=== PATIENT | female | born 1970 | race Caucasian/White ===

== ENCOUNTER 2017-07-30 10:18 | Emergency (ER) | payer OTHER ==
[~2017-07-30] VITALS: Ht 154.9 cm; Wt 59.0 kg
[~2017-07-30 10:18] MED LIST: CYMBALTA 20 MG20 MG PO; ESCITALOPRAM OX10 MG PO; FOLIC ACID 1 MG PO; FOLIC ACID1 M1 PO; IBUPROFEN800 M1 PO; LISINOPRIL10 M1 PO; LYRICA75 M1 PO; MELOXICAM7.5 M1 PO; MELOXICAM7.5 MG PO; METOPROLOL SUC100 M2 PO; MIRALAX17 G1 PO; MORPHINE S10 MG/1 M1 IV; PERCOCET 5-3251 EACH PO; POTASSIUM CHLO10 MEQ PO; SENNA S TABLET1 EACH PO; TOPROL XL25 MG PO; TRAMADOL HCL50 M1 PO; TRAMADOL50 MG PO; TYLENOL325 M1 PO; VITAMIN B-121000 MC3 PO
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
--- NOTE | 2017-07-30 12:34 | RADIOLOGY REPORT ---
EXAMINATION: XR FOOT, RIGHT CLINICAL INFORMATION: Pain status-post fall. COMPARISON: None. TECHNIQUE: AP, lateral, and oblique views of the right foot. FINDINGS: Bony alignment and mineralization are normal. There is a small avulsion fracture seen at the lateral aspect of the base of the distal phalanx of the right great toe. The fracture line shows intra-articular extension. No dislocation is seen. There is no right ankle joint effusion. Boehler's angle is normal. There is no calcaneal spur. No foreign body is seen. IMPRESSION: A minimally displaced fracture is seen of the lateral base of the distal phalanx of the right great toe. The fracture line shows intra-articular extension.
[2017-07-30 12:43] LABS: ABSOLUTE BASOPHIL COUNT 0.3 /CUMM (0.0-0.2); ABSOLUTE EOSINOPHIL COUNT 0.1 /CUMM (0.0-0.7); ABSOLUTE GRANULOCYTE CT 6.9 /CUMM (1.4-6.5); ABSOLUTE LYMPH COUNT 3.2 /CUMM (1.2-3.4); ABSOLUTE MONOCYTE COUNT 0.8 /CUMM (0.10-0.60); BASOPHIL % 2.2 % (0.0-2.0); EOSINOPHIL % 1.2 % (0-5); GRANULOCYTE % 60.8 % (42.2-75.2); HEMATOCRIT 36.7 % (37-47); MEAN CORPUSCULAR HGB 36.5 PG (27.0-31.0); MEAN CORPUSCULAR HGB CONC 34.7 G/DL (33.0-37.0); MEAN CORPUSCULAR VOLUME 105.2 FL (81.0-99.0); MEAN PLATELET VOLUME 6.3 FL (7.4-10.4); PLATELET COUNT 176 /CUMM (130-400); RED BLOOD CELL CT 3.49 /CUMM (4.20-5.40); WHITE BLOOD CELL COUNT 11.3 /CUMM (4.8-10.8)
[2017-07-30 13:03] VITALS: BP 163/74
--- NOTE | 2017-07-30 14:37 | CT SCAN REPORT ---
EXAMINATION: CT HEAD W/O IV CONTRAST CT CERVICAL SPINE W/O IV CONTRAST CLINICAL INFORMATION: Trauma. History of fall 2 days ago. COMPARISON: None TECHNIQUE: Head - Contiguous axial imaging of the head was performed from the skull base to the vertex without the administration of intravenous contrast, and axial images are reconstructed at 0.625 mm , 2.5 mm and 5 mm slice thickness. Cervical spine - A volumetric, helical CT acquisition of the cervical spine was obtained without contrast; in addition to the standard set of axial images, multiplanar reformatted images were provided in the coronal and sagittal imaging planes. DLP: 907 mGy-cm (total) FINDINGS: HEAD: A hyperdense subdural hematoma overlying the left cerebral hemisphere measures up to approximately 0.5 cm wide. Small amount of subdural hemorrhage also extends along the falx and tentorium cerebelli. No significant mass effect upon the underlying brain. The sulcal spaces of the left cerebral hemisphere remain visible and there is no midline shift. The ventricles have normal size and configuration; no hydrocephalus. The dias-white matter differentiation is well preserved. No acute major vascular territory infarction. No evidence of intra-axial or extra-axial mass. The calvarium is intact and the visualized paranasal sinuses, mastoid air cells and middle ear cavities are well aerated. The visualized portions of the facial bones and temporomandibular joints are unremarkable. CERVICAL SPINE: There is lack of lordotic curvature of the cervical spine. This could be secondary to the positioning of the neck for the CT exam or possible paraspinal muscle spasm. The occipital condyles, C1 and C2 lateral masses, dens and atlantodental articulation are intact. The cervical vertebral body heights and alignment are maintained. No acute fractures in the anterior or posterior elements. No prevertebral soft tissue swelling. At C6-C7, there is mild disc space narrowing and anterior traction osteophyte formation. Otherwise, the disc spaces are well preserved. The facet joints and uncovertebral joints are unremarkable. Mild concavity, Schmorl's node and subarticular sclerosis of the superior endplate of T3. However, no convincing acute fracture in the visualized portion of the upper thoracic spine. The examined lung apices are clear. Thyroid gland is normal. IMPRESSION: 1. Acute, hyperdense subdural hematoma overlies the left cerebral hemisphere. Also, small component of subdural hematoma extends along the left falx and tentorium cerebelli. No significant mass effect. No midline shift. 2. No acute fracture or traumatic subluxation within the cervical spine. The critical test result was discussed with Isaura Lopes at 2:30 pm on 07/30/2017 and it was ascertained that the content and the importance of the findings was understood at the time of the direct communication.
--- NOTE | 2017-07-30 14:46 | CT SCAN REPORT ---
EXAMINATION: CT ABDOMEN AND PELVIS WITH CONTRAST CLINICAL INFORMATION: Lower back pain and hematuria status post fall. COMPARISON: None TECHNIQUE: Multidetector volumetric imaging was performed of the abdomen and pelvis following IV administration of 94 mL of Optiray 320 intravenous contrast. Sagittal and coronal reformatted images were obtained on the technologist's workstation. DLP: 256.20 mGy-cm FINDINGS: LUNG BASES: The visualized lung bases are unremarkable. LIVER, GALLBLADDER, AND BILIARY TREE: The liver is normal in size, shape, and attenuation. No focal hepatic lesion or biliary ductal dilatation is present. There are multiple layering gallstones, without gallbladder wall thickening or pericholecystic inflammatory change. PANCREAS: Unremarkable. SPLEEN: Unremarkable. ADRENAL GLANDS: Unremarkable. KIDNEYS AND URETERS: The kidneys are normal in size, shape, and attenuation. No hydronephrosis, hydroureter, or calculi seen. A 1.7 cm exophytic cyst with postcontrast precontrast Hounsfield value of 13.3 units arises from the interpolar left kidney (2:35). No perinephric stranding. BLADDER: Unremarkable. GASTROINTESTINAL TRACT: The small and large bowel are unremarkable. The appendix is unremarkable. ABDOMINAL WALL: No significant hernia is appreciated. LYMPH NODES: Normal. VASCULAR: There is moderate aortoiliac abscess chronic change. No abdominal aortic aneurysm is seen. PELVIC VISCERA: The uterus is unremarkable. A 5.9 x 5.1 cm right ovarian cyst is seen, and there is a complex 2.5 x 2.7 cm left ovarian cyst. OSSEOUS STRUCTURES: There is multi-level thoracolumbar Schmorl's node formation. No acute or aggressive osseous abnormality seen. IMPRESSION: 1. There is cholelithiasis, without cholecystitis or choledocholithiasis. 2. There are bilateral ovarian cysts, as detailed. Strongly recommend further evaluation with dedicated pelvic sonography. Recommend Gynecology evaluation and management. Neoplasm cannot be excluded with certainty given this appearance, particularly on the right. 3. A left renal cyst is incidentally noted.
== END 2017-07-30 15:00 | disposition short-term general hospital (02) ==
LOC: ERH 10:18
PROVIDERS: Physician Assistant
DX: S92.421A Displaced fracture of distal phalanx of right great toe, initial encounter for closed fracture (principal); S90.31XA Contusion of right foot, initial encounter; W19.XXXA Unspecified fall, initial encounter; Y92.89 Other specified places as the place of occurrence of the external cause; Y93.9 Activity, unspecified
CPT/HCPCS: 73630-RT; 74177; 81001; 81025; 96374; J0131; Q9965

== ENCOUNTER 2017-11-14 03:21 | Emergency (ER) | payer OTHER ==
[~2017-11-14] VITALS: Ht 152.4 cm; Wt 54.4 kg
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
[2017-11-14] MEDS ORDERED: TYLENOL WITH C1 EACH PO (05:34)
[2017-11-14 10:05] VITALS: BP 118/68
== END 2017-11-14 10:15 ==
LOC: ERH 03:21
DX: S42.202A Unspecified fracture of upper end of left humerus, initial encounter for closed fracture (principal); Y09 Assault by unspecified means; Y92.9 Unspecified place or not applicable; Y93.9 Activity, unspecified
CPT/HCPCS: 73030-LT; 96372; J1885